=== PATIENT | female | born 1940 | race American Indian/Alaskan Native ===

== ENCOUNTER 2017-03-28 14:22 | Emergency (ER) | payer MEDICARE ==
[2017-03-28 14:23] VITALS: BMI 26.6
[2017-03-28 14:37] VITALS: TEMP 98.2
--- NOTE | 2017-03-28 14:41 | ED PDOC ---
Arrival/HPI - General Chief Complaint: Trauma Time Seen by Provider: 03/28/17 14:40 Historian: Patient, Family - History of Present Illness Narrative History of Present Illness (Text): 03/28/17 76 yo female come in accompanied by daughter for evaluation of scalp contusion developed hour [employer] [address] after sustained mechanical fall. Pt sts, " was standing on step, trying to reach something , thought there is another step behind me, misstepped and fell down, hit back of my head over the close door and floor". Pt admits, was able to get up without difficulty. At present time, pt denies any active complaints. Pt denies syncope, LOC, syncope, denies headache, dizziness, visual changes, focal deficits, N/V, neck pain, drooling, CP, SOB, dyspnea, diaphoresis, abd. pain, back pain, denies weakness, deformity sensory or vascular deficits to B/L UEs and LEs. Ambulatory in ED with stable gait, not in any apparent distress. Past Medical History - Provider Review Nursing Documentation Reviewed: Yes - Travel History Have you recently traveled outside [place] w/in the past 3 mons?: No - Infectious Disease Hx of Infectious Diseases: None - Tetanus Immunization Tetanus Immunization: Unknown - Cardiac Hx Hypertension: Yes - Pulmonary Hx Respiratory Disorders: No - Neurological Hx Neurological Disorder: No - HEENT Hx HEENT Disorder: Yes Hx Glaucoma: Yes - Renal Hx Renal Disorder: No - Endocrine/Metabolic Hx Endocrine Disorders: Yes Hx Diabetes Mellitus Type 1: Yes - Hematological/Oncological Hx Blood Disorders: No - Integumentary Hx Dermatological Disorder: No - Musculoskeletal/Rheumatological Hx Musculoskeletal Disorders: Yes Hx Arthritis: Yes Hx Back Pain: Yes - Gastrointestinal Hx Gastrointestinal Disorders: Yes Hx Gastroesophageal Reflux: Yes - Genitourinary/Gynecological Hx Genitourinary Disorders: No Other/Comment: FIBROID UTERUS - Psychiatric Hx Psychophysiologic Disorder: No Hx Substance Use: No - Surgical History Hx Dilation and Curettage: Yes Hx Hysterectomy: Yes - Anesthesia Hx Anesthesia: Yes Hx Anesthesia Reactions: No Hx Malignant Hyperthermia: No Family/Social History - Physician Review Nursing Documentation Reviewed: Yes Family/Social History: No Known Family HX Smoking Status: Never Smoked Hx Alcohol Use: No Hx Substance Use: No Allergies/Home Meds Allergies/Adverse Reactions: Allergies No Known Allergies Allergy (Verified 03/28/17 14:37) Home Medications: Home Meds Medication Instructions Recorded Confirmed Unobtainable 03/28/17 03/28/17 Review of Systems - Physician Review All systems were reviewed & negative as marked: Yes - Review of Systems Constitutional: Normal Eyes: Normal ENT: Normal Respiratory: Normal Cardiovascular: Normal Gastrointestinal: Normal Genitourinary Female: Normal Musculoskeletal: Normal Skin: Normal, Other (scalp swelling) Neurological: Normal Endocrine: Normal Hemo/Lymphatic: Normal Psychiatric: Normal Physical Exam Vital Signs Reviewed: Yes Vital Signs Temp Pulse Resp BP Pulse Ox 03/28/17 14:36 98.2 F 87 92 H 141/71 99 Temperature: Afebrile Blood Pressure: Normal Pulse: Regular Respiratory Rate: Normal Appearance: Positive for: Well-Appearing, Non-Toxic, Comfortable Pain Distress: None Mental Status: Positive for: Alert and Oriented X 3 - Systems Exam Head: Present: Normocephalic, Contusion (small contusion noted to Right parietal scalp. No palpable deformity.) Pupils: Present: PERRL Extroacular Muscles: Present: EOMI Conjunctiva: Present: Normal Ears: Present: Normal Mouth: Present: Moist Mucous Membranes, Normal Lips. No: Drooling Nose (External): Present: Atraumatic Neck: Present: Normal Range of Motion, Trachea Midline. No: JVD, Bruit Respiratory/Chest: Present: Clear to Auscultation, Good Air Exchange. No: Respiratory Distress, Accessory Muscle Use Cardiovascular: Present: Regular Rate and Rhythm, Normal S1, S2. No: Murmurs Abdomen: Present: Normal Bowel Sounds. No: Tenderness, Distention, Peritoneal Signs, Rebound, Guarding Back: No: Midline Tenderness Upper Extremity: Present: Normal ROM, NORMAL PULSES. No: Deformity Lower Extremity: Present: NORMAL PULSES, Normal ROM, Neurovascularly Intact. No : Tenderness, Swelling, Deformity Neurological: Present: GCS=15, Speech Normal, Normal Sensory Function, Norm Deep Tendon Reflexes Skin: Present: Warm, Dry, Normal Color. No: Rashes Psychiatric: Present: Alert, Oriented x 3, Normal Insight, Normal Concentration Medical Decision Making ED Course and Treatment: 03/28/17 15:45 PT WAS OBS IN Emergency department FOR 1 HOURS AND REMAINED ASYMPTOMATIC. On re-evaluation, pt is Afebrile, hemodynamicaly stable. Non-toxic. PulsEOx 99% RA Neck; Supple, (-) JVD Lungs: CTA B/L, BS equal B/L. CVS: (+)S1S2, reg Abd: benign, (-) guarding, (-)rebound, (-) localized tenderness. neuorlogicaly intact. Imaging results review and appears without acute findings. Pt has clinical findings c/w head injury s/p mechanical fall. Pt and family advised OBS 48 hrs for any sign of head injury-return to ED immediately for re-eval. RESULTS REVIEW WITH PATIENT OF C-SPINE, REF. TO F/U WITH PMD FOR RE-EVAL OF THYROID GLAND. ref. to f/u with PMD in 1-2 days for re-eval. return if any worsening or new changes. - RAD Interpretation Narrative RAD Interpretations (Text): 03/28/17 CT HEAD IMPRESSION: No acute intracranial hemorrhage. The mid and right parasagittal posterior superior parietal scalp contusion/soft tissue swelling. Mild chronic periventricular white matter ischemic changes. Moderate Volume loss. CT C-SPINE; IMPRESSION: No acute fractures. Mild multilevel degenerative spondylosis. Enlarged left lobe thyroid gland. Small calcification right lobe thyroid gland. Recommend followup thyroid ultrasound. Radiology Orders: 03/28/17 14:40 CERVICAL SPINE W/O CONTRAST [CT] Stat HEAD W/O CONTRAST [CT] Stat Disposition/Present on Arrival - Present on Arrival Any Indicators Present on Arrival: No History of DVT/PE: No History of Uncontrolled Diabetes: No Urinary Catheter: No History of Decub. Ulcer: No History Surgical Site Infection Following: None - Disposition Have Diagnosis and Disposition been Completed?: Yes Diagnosis: Head injury Disposition: HOME/ ROUTINE Disposition Time: 15:47 Patient Plan: Discharge Patient Problems: Current Active Problems Problem Status Onset Head injury Acute Condition: STABLE Discharge Instructions (ExitCare): Head Injury (ED) Additional Instructions: OBSERVE 48 HOURS FOR ANY SIGN OF HEAD INJURY-INTRACTABLE;E HEADACHE, VOMITING, LETHARGY, VISUAL CHANGES OR ANY OTHER NEW CHANGES-RETURN TO ED IMMEDIATELY FOR RE-EVALUATION. TYLENOL NEED FOR HEADACHE FOLLOW UP WITH PMD IN 1-2 DAYS FOR RE-EVALUATION. Referrals: [id number] Payam Walsh, [Primary Care Provider] - Follow up with primary [facility] [place] - Follow up with primary Phillip Orosco MD [Staff Provider] - Follow up with primary Forms: [employer] ([place])
--- NOTE | 2017-03-28 15:29 | CT ---
PROCEDURE: CT HEAD WITHOUT CONTRAST. HISTORY: INJURY COMPARISON: None available. TECHNIQUE: Axial computed tomography images were obtained through the head/brain without intravenous contrast. Radiation dose: Total exam DLP = 931.73 mGy-cm. This CT exam was performed using one or more of the following dose reduction techniques: Automated exposure control, adjustment of the mA and/or kV according to patient size, and/or use of iterative reconstruction technique. FINDINGS: HEMORRHAGE: No acute parenchymal, subarachnoid or extra-axial hemorrhage. BRAIN: . Mild diffuse/ confluent chronic periventricular white matter ischemic changes are present. Moderate generalized volume loss. Vascular calcifications both carotid siphons VENTRICLES: Unremarkable. No hydrocephalus. CALVARIUM: No acute calvarial fractures. There is mild mid and right parasagittal posterior superior parietal scalp contusion/soft tissue swelling. All the the PARANASAL SINUSES: Unremarkable as visualized. No significant inflammatory changes. MASTOID AIR CELLS: Unremarkable as visualized. No inflammatory changes. OTHER FINDINGS: None. IMPRESSION: No acute intracranial hemorrhage. The mid and right parasagittal posterior superior parietal scalp contusion/soft tissue swelling. Mild chronic periventricular white matter ischemic changes. Moderate Volume loss.
--- NOTE | 2017-03-28 15:47 | CT ---
PROCEDURE: CT scan of the cervical spine dated 03/28/2017. HISTORY: Injury. COMPARISON: No prior study available for comparison. The TECHNIQUE: Axial computed tomography images were obtained of the cervical spine without the use of intravenous contrast. Coronal and sagittal reformatted images were created and reviewed. Radiation dose: Total exam DLP = 774.71 mGy-cm. This CT exam was performed using one or more of the following dose reduction techniques: Automated exposure control, adjustment of the mA and/or kV according to patient size, and/or use of iterative reconstruction technique. FINDINGS: VERTEBRAE: No acute compression fractures no retropulsed fragments. The vertebral bodies exhibit relatively normal stature. Straightening of the normal cervical lordosis which could be due to patient positioning gantry however underlying element of muscle spasm may contribute. Vertebral bodies and facets otherwise normally aligned. DISCS/SPINAL CANAL/NEURAL FORAMINA: Multilevel degenerative spondylosis with large partially bridging anterior osteophyte formation noted at nearly every level. Findings could represent DISH. . At the at C2-C3 level, disc space height is relatively maintained. Minimal irregular posterior on ridge formation the contiguous with slightly overgrown uncovertebral joints more so on the left side. Facets are prominent. Central canal and exit foramina adequate. Note made of a small incompletely bridging anterior osteophyte extending the C2-C3 level partially At the C3-C4 level, there is adequate disc height. Prominent anterior partially bridging osteophyte formation. . Minimal broad-based bulge of the posterior annulus. Facets are mildly hypertrophic left greater than right. Central canal and exit foramina adequate. At the C4-C5 level, there is adequate disc height. No disc herniation or significant disc bulge. Prominent of incompletely bridging anterior osteophyte present. The facets are hypertrophic on the left. Central canal and exit foramina appear adequate. At the C5-C6 level, disc space height maintained with prominent anterior bridging osteophyte and tiny posterior osteophytic ridge formation. The uncovertebral joints exhibit minimal degenerative squaring. Central canal and exit foramina adequate. At the C6-C7 level, there is adequate disc height. Small central and bilateral osteophytic ridge disc bulge complex. Facet joints are mildly hypertrophic. Central canal and exit foramina adequate. . PARASPINAL SOFT TISSUES: Unremarkable. OTHER FINDINGS: Lung apices are clear. Note made of a mildly enlarged left lobe thyroid gland compared to the right. There is also a tiny calcification peripheral on aspect right lobe thyroid gland. Thyroid ultrasound followup recommended. IMPRESSION: No acute fractures. Mild multilevel degenerative spondylosis. Enlarged left lobe thyroid gland. Small calcification right lobe thyroid gland. Recommend followup thyroid ultrasound.
[2017-03-28 16:10] VITALS: BP 138/69; PULSE 82; RESP 18; O2SAT 98
== END 2017-03-28 16:19 | disposition home or self-care (01) ==
LOC: ED 14:22
DX: S09.90XA Unspecified injury of head, initial encounter (principal); W10.9XXA Fall (on) (from) unspecified stairs and steps, initial encounter; I10 Essential (primary) hypertension

== ENCOUNTER 2018-04-05 00:54 | Emergency (ER) | payer MEDICARE ==
[2018-04-05 01:07] VITALS: BMI 30.2
[2018-04-05 01:11] VITALS: RESP 18; O2SAT 97
[2018-04-05] MEDS ORDERED: DiphenhydrAMINE 50 mg/ml Inj IVP STA (01:15)
--- NOTE | 2018-04-05 01:22 | ED PDOC ---
Arrival/HPI - General Chief Complaint: Allergic Reaction Time Seen by Provider: 04/05/18 01:14 Historian: Patient - History of Present Illness Narrative History of Present Illness (Text): 04/05/18 01:17 77 yo F c/o red flat itchy painless rash to the R upper back and itchy painless rash which appears similar to insect bites in appearance to the R elbow and R mandible for the past few days. Reports that she took benadryl a few days ago and the rash in her R upper back seemed to improve, then yesterday she saw her pmd who Rx her triamcinolone cream, which she applied to her face for the first time tonight and started to develop hot sensation and swelling to her entire face. Denies any fevers, headache, URI, SOB, dyspnea. Reports that she was also taking amoxicillin recently, but reports no pcn allergy. Past Medical History - Infectious Disease Hx of Infectious Diseases: None - Tetanus Immunization Tetanus Immunization: Unknown - Cardiac Hx Hypertension: Yes - Pulmonary Hx Respiratory Disorders: No - Neurological Hx Neurological Disorder: No - HEENT Hx HEENT Disorder: Yes Hx Glaucoma: Yes - Renal Hx Renal Disorder: No - Endocrine/Metabolic Hx Endocrine Disorders: Yes Hx Diabetes Mellitus Type 1: Yes - Hematological/Oncological Hx Blood Disorders: No - Integumentary Hx Dermatological Disorder: No - Musculoskeletal/Rheumatological Hx Musculoskeletal Disorders: Yes Hx Arthritis: Yes Hx Back Pain: Yes - Gastrointestinal Hx Gastrointestinal Disorders: Yes Hx Gastroesophageal Reflux: Yes - Genitourinary/Gynecological Hx Genitourinary Disorders: No Other/Comment: FIBROID UTERUS - Psychiatric Hx Psychophysiologic Disorder: No Hx Substance Use: No - Surgical History Hx Dilation and Curettage: Yes Hx Hysterectomy: Yes - Anesthesia Hx Anesthesia: Yes Hx Anesthesia Reactions: No Hx Malignant Hyperthermia: No Family/Social History Family/Social History: No Known Family HX Smoking Status: Never Smoked Hx Alcohol Use: No Hx Substance Use: No Allergies/Home Meds Allergies/Adverse Reactions: Allergies No Known Allergies Allergy (Verified 04/05/18 01:06) Review of Systems - Review of Systems Constitutional: absent: Fatigue, Fevers Respiratory: absent: SOB, Cough Cardiovascular: absent: Chest Pain, Palpitations Gastrointestinal: absent: Abdominal Pain, Diarrhea, Vomiting Genitourinary Female: absent: Dysuria, Frequency Musculoskeletal: absent: Arthralgias, Back Pain Skin: Rash, Pruritis. absent: Skin Lesions Neurological: absent: Headache, Dizziness Physical Exam Vital Signs Pulse Resp Pulse Ox 04/05/18 01:10 98 H 18 97 Blood Pressure: Normal Pulse: Regular Respiratory Rate: Normal Appearance: Positive for: Well-Appearing, Non-Toxic, Comfortable Pain Distress: None Mental Status: Positive for: Alert and Oriented X 3 - Systems Exam Head: Present: Atraumatic, Normocephalic Pupils: Present: PERRL Extroacular Muscles: Present: EOMI Conjunctiva: Present: Normal Mouth: Present: Moist Mucous Membranes Pharnyx: Present: Normal. No: ERYTHEMA, EXUDATE Neck: Present: Normal Range of Motion Respiratory/Chest: Present: Clear to Auscultation, Good Air Exchange. No: Respiratory Distress, Accessory Muscle Use Cardiovascular: Present: Regular Rate and Rhythm, Normal S1, S2. No: Murmurs Abdomen: No: Tenderness, Distention, Peritoneal Signs Back: Present: Normal Inspection Upper Extremity: Present: Normal Inspection. No: Cyanosis, Edema Lower Extremity: Present: Normal Inspection. No: Edema Neurological: Present: GCS=15, CN II-XII Intact, Speech Normal Skin: Present: Warm, Dry, Rashes (+few erythematous circular flat lesions with central clearing noted to the R upper back, +few insect bites to the R elbow and R mandible. ), Normal Color Psychiatric: Present: Alert, Oriented x 3, Normal Insight, Normal Concentration Medical Decision Making ED Course and Treatment: 04/05/18 01:15 Plan : - IV - pepcid IV - benadryl IV 04/05/18 02:05 On reevaluation, patient reports improvement of symptoms, denies any facial/throat swelling or SOB. On exam, patient is sleeping, but arouses, there is noted improvement of the facial rash. Advised to follow up with primary care physician in 1-2 days without fail. Advised to take medication as prescribed. Return to the emergency room at any time for any new or worsening symptoms. Patient states she fully agrees with and understands discharge instructions. States that she agrees with the plan and disposition. Verbalized and repeated discharge instructions and plan. I have given the patient opportunity to ask any additional questions. - PA / STONE REPAIRER / Resident Statement MD/DO has reviewed & agrees with the documentation as recorded. Disposition/Present on Arrival - Present on Arrival Any Indicators Present on Arrival: No History of DVT/PE: No History of Uncontrolled Diabetes: No Urinary Catheter: No History of Decub. Ulcer: No History Surgical Site Infection Following: None - Disposition Have Diagnosis and Disposition been Completed?: Yes Diagnosis: Rash Disposition: HOME/ ROUTINE Disposition Time: 02:00 Condition: STABLE Discharge Instructions (ExitCare): Skin Rash (DC) Additional Instructions: Thank you for letting us take care of you today. You were treated for rash. The emergency medical care you received today was directed at your acute symptoms. If you were prescribed any medication, please fill it and take as directed. It may take several days for your symptoms to resolve. Return to the Emergency Department if your symptoms worsen, do not improve, or if you have any other problems. Please contact your doctor in 2 days for re-evaluation and follow up / or call one of the physicians/clinics you have been referred to that are listed on the Patient Visit Information form that is included in your discharge packet. Bring any paperwork you were given at discharge with you along with any medications you are taking to your follow up visit. Our treatment cannot replace ongoing medical care by a primary care provider (PCP) outside of the emergency department. Thank you for allowing the [facility] team to be part of your care today. Prescriptions: DiphenhydrAMINE [Benadryl] 25 mg PO TID #20 cap Famotidine [Pepcid] 40 mg PO DAILY #20 tablet Referrals: Gil Rosen MD [Staff Provider] - Follow up with primary Forms: [id number] (Citizen [place])
[2018-04-05 01:30] VITALS: TEMP 98
[2018-04-05 02:14] VITALS: BP 134/64; PULSE 81
== END 2018-04-05 03:20 | disposition home or self-care (01) ==
LOC: ED 00:54
DX: R21 Rash and other nonspecific skin eruption (principal); I10 Essential (primary) hypertension
CPT/HCPCS: 96374; 96375; 99283; J1200